=== PATIENT | female | born 1985 | race African-American/Black ===

== ENCOUNTER 2020-05-23 10:59 | Emergency (ER) | payer SELFPAY ==
[~2020-05-23] VITALS: Ht 167.6 cm; Wt 77.0 kg
[2020-05-23 11:25] VITALS: BP 116/83
[2020-05-23] MEDS ORDERED: METH-653 MT (11:34)
[2020-05-23] MEDS ORDERED: SULF1TAB48 MT (11:34)
[2020-05-23] MEDS ORDERED: CEPH500T MT (11:34)
== END 2020-05-23 11:48 | disposition home or self-care (01) ==
LOC: ER 11:06
DX: M62.838 Other muscle spasm (principal); L02.31 Cutaneous abscess of buttock; G43.909 Migraine, unspecified, not intractable, without status migrainosus; F17.200 Nicotine dependence, unspecified, uncomplicated; Z88.8 Allergy status to other drugs, medicaments and biological substances
CPT/HCPCS: 99283